=== PATIENT | male | born 1990 | race Caucasian/White ===

== ENCOUNTER 2016-09-23 11:12 | Day surgery (SDC) | payer OTHER ==
[2016-09-23] VITALS (11 sets, daily range): BP systolic 109–143; BP diastolic 60–89; PULSE 55–92; RESP 10–24; O2SAT 96–98
[~2016-09-23] VITALS: Ht 182.9 cm; Wt 85.4 kg
--- NOTE | 2016-09-23 07:45 | PCM.HPANE ---
Patient Data Surgeon Admitting Provider: Attending Provider:Deanna Beck MD Primary Care Physician:[facility],Mateo Sanchez Other Provider:Laura Holderingham Anesthesia Reason for Visit Bilateral Kidney Stone Ht/WT & BMI Height (Feet): 6 Height (Inches): 0 Weight (Kilograms): 87.089 Body Mass Index 26.00 Allergies Coded Allergies: No Known Allergies (Unverified , 09/21/16) Past Anesthesia History Anesthesia History: Denies:: Fam Anesthesia Reaction, Fam Malignant Hypertherm Diabetes History Hx Diabetes?: No MRSA MRSA: No Medications No Active Prescriptions or Reported Meds History History of ENT Problems?: No Hx of Heart Problems?: No Cardiovascular History: Denies:: Heart Murmur Hypertension Hx of Respiratory Problem?: Yes Respiratory History: Denies:: Use of C-PAP Machine (SNORES) Hx Neurologic Problems?: No Hx of GI Problems?: No Hx of Problems?: Yes Genitourinary History: Positive for:: Kidney Stones (HX OF PASSING PRIOR STONE B/L KIDNEY STONES=CURRENT PROBLEM) Other Pertinent History: C/OF INTERMITTANT FLANK PAIN Male Hx: Denies:: Prostate Problems Scrotal Mass Testicular Surgery Skin History: Denies:: History Skin Disorders? Pressure Ulcers Hx Musculoskeletal Problems?: No Hx of Psycho/Social Problems?: No Hx Surgeries?: No Hx Any Other Health Problems?: No Other History: Denies:: Cancer Endocrine Disease Hospitalization Thyroid Disease Hx Diabetes: No Have You Smoked inLast 12 mo: No Stop/Bang S-Snoring: Do You Snore Loudly: Yes T-Tired: feel tired, fatigued: No O-Obsered: Observed not breath: No P-Blood Pressure: treated: No B- Body Mass Index > 35 kg/m2: No A- Age over 50: No N- Neck Large Circumference: No G- Gender Male: Yes LITO Total Score: 2 Risk Assessment Category Category 1A: Patient has history of documented sleep apnea, and HAS NOT received any narcotic, sedative or anesthesia administration during this stay. Category 1B: Patient has history of documented sleep apnea, and HAS received any narcotic , sedative or anesthesia administration during this stay Category 2: Patient has SUSPECTED Obstructive Sleep Apnea, and HAS received any narcotic , sedative or anesthesia administration during this stay. Category 3: Patient has SUSPECTED Obstructive Sleep Apnea and HAS NOT received narcotic, sedative or anesthesia administration during this stay. Category 4: Outpatient in Procedural Areas with known sleep apnea or who screen positive for High Risk via the STOP/BANG questionnaire. Exam Exam General Appearance: Alert, Oriented X3, Cooperative, No Acute Distress HEENT/AIRWAY: MP 2 Lungs: Clear to Percussion Heart: Regular Rate/Rhythm Plan Impression Patient chart reviewed, patient interviewed and anesthestic plan with risks, benefits, and alternatives discussed, and informed consent obtained. ASA Physical Status: ASA1 Normal Healthy Anesthetic Plan: GA Bene/Risks/Altern/Consents: Yes HP Complete Prior to Induction: Yes Marixa Alvarenga DO Sep 23, 2016 07:45
[2016-09-23] MEDS ORDERED: Propofol 10,000 mCg/mL 20 mL Inj ONE (11:13)
[2016-09-23] MEDS ORDERED: fentaNYL-PF 50 mCg/mL 2 mL Inj ONE (11:13)
[2016-09-23] MEDS ORDERED: Dexamethasone 4 mg/mL Inj ONE (11:13)
[2016-09-23] MEDS ORDERED: Ondansetron 2 mg/mL 2 mL Inj ONE (11:13)
[2016-09-23] MEDS ORDERED: CeFAZolin Inj 2 gm / 50mL D5W IV ONE (11:17)
[2016-09-23] MEDS: Lactated Ringer's 1,000 ML IV SCH ×3 (12:01→13:25)
[2016-09-23] MEDS ORDERED: fentaNYL-PF 50 mCg/mL 2 mL Inj IVPUSH PRN (12:50)
[2016-09-23] MEDS ORDERED: Lactated Ringer's 1,000 ML IV SCH (12:50)
[2016-09-23] MEDS ORDERED: MetoCLOpramide 5 mg/mL 2 mL Inj IVPUSH PRN (12:50)
[2016-09-23] MEDS ORDERED: Ondansetron 2 mg/mL 2 mL Inj IVPUSH PRN (12:50)
[2016-09-23] MEDS ORDERED: Lactated Ringer's 500 ML IV PRN (12:50)
[2016-09-23] MEDS ORDERED: HYDROmorphone 1 mg/mL Inj IVPUSH PRN (12:50)
[2016-09-23] MEDS: CeFAZolin Inj 2 GM in IV Premix 1 EACH IV ONE ×2 (12:51→13:30)
--- NOTE | 2016-09-23 14:28 | PCM.ANEP2 ---
Post Anesthesia Evaluation ASA/CMS Post Anesthesia VS in Patient's Normal Range?: Yes Resp Stable; Airway Patent?: Yes CV Function & Hydration Stable: Yes Mental Status Recovered?: Yes Pain control Satisfactory?: Yes N/V Control Satisfactory?: Yes Marixa Alvarenga DO Sep 23, 2016 14:28
--- NOTE | 2016-09-23 14:28 | PCM.ANEP1 ---
Post Anesthesia Phase 1 PACU Phase 1 Assessment Vital Signs Vital Signs Date Time Temp Pulse Resp B/P Pulse Ox O2 Delivery O2 Flow Rate FiO2 09/23/16 14:25 59 14 114/60 97 Simple Mask 8 09/23/16 14:20 55 13 114/62 98 Simple Mask 8 09/23/16 14:18 36.3 55 14 115/64 97 Simple Mask 8 09/23/16 12:02 36.5 79 16 137/81 98 Room Air Anesthetic Administered: GA Level of Alertness: Sleeping, hard to arouse ALFORD's with Equal Strength: Yes Pain: No Nausea or Vomiting: No Oxygen Delivery: Simple Mask Lungs: Normal Air Movement Marixa Alvarenga DO Sep 23, 2016 14:28
--- NOTE | 2016-09-23 14:45 | DRSVH ---
PROCEDURE: X-RAY RETROGRADE UROGRAPHY INDICATIONS: RIGHT STENT TECHNIQUE: 4 intra-operative images acquired by the Urology service. COMPARISON: Outside Film, CT, CT ABD PELVIS W CON, 07/04/2016, 7:38. FINDINGS: Normal appearance of the right renal collecting system. No intraluminal filling defects a re seen. Collecting system is sharp and nondistorted. Visualized portions of the right ureter appea r normal. No extravasation of contrast media. Ureteral stent in place. IMPRESSION: Normal appearance of the right renal collecting system and ureter were visualized and ure teral stent was placed. Dictated by: Max ALLEN Interpreted: Ivon Brizuela MD on 09/23/2016 at 14:44 Transcribed by: JACE on 09/23/2016 at 14:44 Approved by: Ivon Brizuela M.D. on 09/23/2016 at 15:56
--- NOTE | 2016-09-23 14:46 | DRSVH ---
PROCEDURE: X-RAY RETROGRADE UROGRAPHY INDICATIONS: LEFT STENT TECHNIQUE: 3 intra-operative images acquired by the Urology service. COMPARISON: Outside Film, CT, CT ABD PELVIS W CON, 07/04/2016, 7:38. , CR, XR RETROGRADE UROGRAPHY, 09/23/2016, 13:44. FINDINGS: Normal appearance of the left renal collecting system. No intraluminal filling defects ar e seen. Collecting system is sharp and nondistorted. Visualized portions of the right ureter appear normal. No extravasation of contrast media. Ureteral stent in place. IMPRESSION: Normal appearance of the left renal collecting system and the ureter were visualized with placement of ureteral stent. Dictated by: Max ALLEN Interpreted: Ivon Brizuela MD on 09/23/2016 at 14:45 Transcribed by: JACE on 09/23/2016 at 14:46 Approved by: Ivon Brizuela M.D. on 09/23/2016 at 15:56
[2016-09-23] MEDS: HYDROcodone-APAP 5-325 mg Tablet PO PRN ×2 (15:30→15:57)
--- NOTE | 2016-09-24 04:21 | OP ---
[address] [address] OPERATIVE REPORT PATIENT: GEOVANNY MCKAY : 1990 MR#: [id number] ADMIT: 09/23/2016 JOB ID: [id number] DATE OF SURGERY: 09/23/2016 PREOPERATIVE DIAGNOSIS(ES): Bilateral nephrolithiasis. POSTOPERATIVE DIAGNOSIS(ES): Bilateral nephrolithiasis. PROCEDURE PERFORMED: 1. Cystoscopy and bilateral retrograde pyelogram. 2. Right ureteroscopy. 3. Bilateral ureteral stent placement. SURGEON: Deanna Beck MD. CERTIFIED PROSTHETIST/ORTHOTIST: None. FINDINGS: Normal bilateral retrograde pyelograms. ANESTHESIA: General. ESTIMATED BLOOD LOSS: Less than 5 mL. DRAINS: Bilateral 6 x 28 double J ureteral stents. SPECIMENS: None. COMPLICATIONS: None. CONDITION: Stable. 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 DESCRIPTION OF PROCEDURE: After informed consent was obtained, the patient was taken to the operating room. A time-out was performed identifying correct patient, surgical site, and procedure. General anesthesia was smoothly induced. He was placed in the lithotomy position and all pressure points were identified and appropriately padded. His genitals were then prepped and draped in the usual sterile fashion. A 22-Khmer rigid cystoscope was applied to the patient's urethra and advanced to the bladder. The bladder was drained. The bladder was inspected, it was normal. Both ureteral orifices were in orthotopic position. The right ureteral orifice was cannulated with a 5-Khmer open-ended Pollack catheter. Retrograde pyelogram was performed. It appeared normal. Two Sensor tip wires were advanced into the renal pelvis in succession. A 12/14 Access sheath, 28 cm long was advanced over one of those wires into the mid ureter. Flexible ureteroscopy then commenced. Upon advancing to approximately a few centimeters distal to the ureteropelvic junction, there was a narrowing there. There was no stricture. This appeared to be physiologic narrowing. Gentle attempts to advance beyond this area were not possible. Retrograde pyelogram did confirm a slight narrowing in this area. The ureteroscope was then brought down to the level of the access sheath and both were brought down under direct vision. The ureter appeared entirely normal. The remaining Sensor tip wire then back loaded into the cystoscope and a 6 x 28 double-J ureteral stent was loaded over the wire and advanced to the renal pelvis as seen under fluoroscopy. The wire then removed leaving a nice coil in the patient's bladder seen under direct vision. Attention was then turned to the left ureter. A 5-Khmer open-ended Pollack catheter was used to cannulate the orifice. Retrograde pyelogram was performed. It appeared normal. Two Sensor tip wires were advanced into the renal pelvis in succession. A 12/14 access sheath, 28 cm long was attempted to be advanced past the ureteral orifice though this was just not possible as the orifice was tight. The access sheath was removed and the remaining Sensor tip wire was then loaded into the cystoscope and a 6 x 28 double-J ureteral stent was loaded over it and advanced to renal pelvis, seen under fluoroscopy. The bladder was then drained. The 2% viscous lidocaine was instilled in the patient's urethra. The patient was then reversed from general anesthesia and taken to PACU in good and stable condition. ENMA
[2016-09-27] MEDS ORDERED: HYDR-3740 PO (11:36)
== END 2016-09-23 23:59 | disposition home or self-care (01) ==
LOC: SAS 11:12
PROVIDERS: ATTEND Urology
DX: N20.0 Calculus of kidney (principal); R10.30 Lower abdominal pain, unspecified; Z72.0 Tobacco use
CPT/HCPCS: 52332; 74420; C2617; J0690; J1100; J2405; J3010; J7120; Q9967

== ENCOUNTER 2016-09-29 10:40 | Day surgery (SDC) | payer OTHER ==
[2016-09-29] VITALS (7 sets, daily range): BP systolic 126–151; BP diastolic 67–87; PULSE 74–96; RESP 12–22; O2SAT 96–98
[~2016-09-29] VITALS: Ht 182.9 cm; Wt 87.1 kg
[~2016-09-29 10:40] MED LIST: CeFAZolin Inj 2 GM in IV Premix 1 EACH IV ONE; HYDR-3740 PO; Lactated Ringer's 1,000 ML IV SCH
[2016-09-29] MEDS ORDERED: fentaNYL-PF 50 mCg/mL 2 mL Inj ONE (10:41)
[2016-09-29] MEDS ORDERED: Dexamethasone 4 mg/mL Inj ONE (10:41)
[2016-09-29] MEDS ORDERED: Propofol 10,000 mCg/mL 20 mL Inj ONE ×2 (10:41)
[2016-09-29] MEDS ORDERED: Ondansetron 2 mg/mL 2 mL Inj ONE ×2 (10:41)
[2016-09-29] MEDS ORDERED: Lactated Ringer's 1,000 ML IV ONE (11:01)
--- NOTE | 2016-09-29 13:08 | PCM.HPANE ---
Patient Data Surgeon Admitting Provider: Attending Provider:Deanna Beck MD Primary Care Physician:[facility],Mateo Sanchez Other Provider:Estefanía Holder Anesthesia Reason for Visit Bilateral Kidney Stones Ht/WT & BMI Height (Feet): 6 Height (Inches): 0.00 Weight (Kilograms): 87.080 Body Mass Index 26.00 Allergies Coded Allergies: No Known Allergies (Unverified , 09/21/16) Past Anesthesia History Anesthesia History: Denies:: Anesthesia Reactions, Fam Anesthesia Reaction, Fam Malignant Hypertherm Diabetes History Hx Diabetes?: No MRSA MRSA: No Medications Hypertension Medication: No Home Meds Incl Beta Cheri: No Reported Medications Hydrocodone-Acetaminophen 10-325 mg 1 Each Tablet1-2 Tablet PO Q4H PRN For Pain Ref 0 09/27/16 History History of ENT Problems?: No HEENT History: Denies:: Hearing Problem Denture Type: None Teeth Condition: Within Normal Limits Hx of Heart Problems?: No Cardiovascular History: Denies:: AICD Abdominal Aortic Aneurism Atrial Fibrillation Cardiac Surgery Chest Pain Congestive Heart Failure Coronary Artery Disease Edema Heart Murmur Hypertension Irregular Heartbeat Pacemaker Peripheral Vascular Rheumatic Fever Thrombophlebitis Valvular Heart Disease Hx of Respiratory Problem?: No Respiratory History: Denies:: Asthma COPD Chest Surgery Cough Dyspnea Emphysema Hemoptysis Oxygen Administration Pneumonia Pulmonary Embolism Tuberculosis Use of C-PAP Machine Use of Inhalers / NEBS Hx Neurologic Problems?: No Neurological History: Denies:: Alzheimer's Disease CVA Dementia Dizziness Headaches Multiple Sclerosis Parkinson's Disease Peripheral Neuropathy Seizures TIA Hx of GI Problems?: No Gastrointestinal History: Denies:: Cirrhosis Diverticulitis Gall Bladder Disease Gastroesphageal Reflux Gastrointestinal Bleeding Heartburn Hepatitis Hiatal Hernia Liver Disease Rectal Bleeding Hx of Problems?: Yes Genitourinary History: Positive for:: Kidney Stones (dirk stones current admission problem- last surg here 09/23/16) Denies:: Urinary Tract Infection Male Hx: Denies:: Prostate Problems Scrotal Mass Testicular Surgery Skin History: Denies:: History Skin Disorders? Pressure Ulcers Hx Musculoskeletal Problems?: No Musculoskeletal History: Denies:: Back Injury Degenerative Joint Fibromyalgia Joint Replacement Musculoskeletal Trauma Myasthenia Gravis Osteoarthritis Rheumatoid Arthritis Systemic Lupus Hx of Psycho/Social Problems?: No Psycho Social History: Denies:: Anxiety Bipolar Disorder Hx Depression Suicide Attempt Hx Surgeries?: Yes (cysto, lithotripsy) Hx Any Other Health Problems?: Yes Other History: Denies:: Cancer Endocrine Disease Hospitalization Thyroid Disease Hx Diabetes: No Hx Alcohol Use: NoHx Substance Use: NoHave You Smoked inLast 12 mo: No Stop/Bang S-Snoring: Do You Snore Loudly: Yes T-Tired: feel tired, fatigued: No O-Obsered: Observed not breath: No P-Blood Pressure: treated: No B- Body Mass Index > 35 kg/m2: No A- Age over 50: No N- Neck Large Circumference: No G- Gender Male: Yes LITO Total Score: 2 Risk Assessment Category Category 1A: Patient has history of documented sleep apnea, and HAS NOT received any narcotic, sedative or anesthesia administration during this stay. Category 1B: Patient has history of documented sleep apnea, and HAS received any narcotic , sedative or anesthesia administration during this stay Category 2: Patient has SUSPECTED Obstructive Sleep Apnea, and HAS received any narcotic , sedative or anesthesia administration during this stay. Category 3: Patient has SUSPECTED Obstructive Sleep Apnea and HAS NOT received narcotic, sedative or anesthesia administration during this stay. Category 4: Outpatient in Procedural Areas with known sleep apnea or who screen positive for High Risk via the STOP/BANG questionnaire. Exam Exam Vital Signs Vital Signs Date Time Temp Pulse Resp B/P Pulse Ox O2 Delivery O2 Flow Rate FiO2 09/29/16 10:57 36.6 74 16 126/70 96 Room Air General Appearance: Alert, Oriented X3, Cooperative, No Acute Distress HEENT/AIRWAY: MP 2 Lungs: Clear to Auscultation, Normal Air Movement Heart: Exam Unremarkable, Regular Rate/Rhythm, No Murmurs/Rubs/Gallops Meds/Labs/Diagnostics Admission Meds Current Medications Lactated Ringer's (Lr) 1,000 ml @ ud STK-MED ONCE IV Last administered on 09/29t 11:01; Start 09/29/16 at 11:01; Stop 09/29/16 at 11:02; Status DC Plan Impression Patient chart reviewed, patient interviewed and anesthestic plan with risks, benefits, and alternatives discussed, and informed consent obtained. ASA Physical Status: ASA2 Mod Systemic Disease Anesthetic Plan: GA Bene/Risks/Altern/Consents: Yes HP Complete Prior to Induction: Yes Mika Bee MD Sep 29, 2016 11:37
[2016-09-29] MEDS ORDERED: Lactated Ringer's 1,000 ML IV SCH (14:29)
[2016-09-29] MEDS ORDERED: Lactated Ringer's 500 ML IV PRN (14:29)
[2016-09-29] MEDS ORDERED: Dexamethasone 4 mg/mL Inj IVPUSH PRN (14:30)
[2016-09-29] MEDS ORDERED: Ondansetron 2 mg/mL 2 mL Inj IVPUSH PRN (14:30)
[2016-09-29] MEDS ORDERED: HYDROmorphone 1 mg/mL Inj IVPUSH PRN (14:30)
[2016-09-29] MEDS ORDERED: EPHEDrine Sulfate 50 mg/mL Inj IVPUSH PRN (14:30)
[2016-09-29] MEDS ORDERED: MetoCLOpramide 5 mg/mL 2 mL Inj IVPUSH PRN (14:30)
[2016-09-29] MEDS ORDERED: fentaNYL-PF 50 mCg/mL 2 mL Inj IVPUSH PRN (14:30)
[2016-09-29] MEDS ORDERED: Phenylephrine 10,000 mCg/mL Inj IVPUSH PRN (14:30)
--- NOTE | 2016-09-29 14:31 | PCM.ANEP1 ---
Post Anesthesia Phase 1 PACU Phase 1 Assessment Vital Signs Vital Signs Date Time Temp Pulse Resp B/P Pulse Ox O2 Delivery O2 Flow Rate FiO2 09/29/16 14:28 37.0 91 15 141/70 97 Room Air 09/29/16 10:57 36.6 74 16 126/70 96 Room Air Anesthetic Administered: GA Level of Alertness: Awake, talking ALFORD's with Equal Strength: Yes Pain: No Nausea or Vomiting: No Cardiovascular Function and Hy: Yes Oxygen Delivery: Room Air Lungs: Clear to Auscultation, Normal Air Movement Dermatome Level: Full Sensation Complications: Yes Follow up Care: No Patient Instructions Provided: Yes Mika Bee MD Sep 29, 2016 14:31
[2016-09-29] MEDS ORDERED: HYDROcodone-APAP 5-325 mg Tablet PO PRN (14:35)
--- NOTE | 2016-09-29 14:51 | DRSVH ---
PROCEDURE: X-RAY RETROGRADE UROGRAPHY INDICATIONS: BILATERAL KIDNEY STONES TECHNIQUE: 2 intra-operative images acquired by the Urology service. COMPARISON: [facility], CR, XR RETROGRADE UROGRAPHY, 09/23/2016, 13:44. [facility], CR, XR RETROGRADE UROGRAPHY, 09/29/2016, 13:41. [facility], CR, XR RETROGRADE URO GRAPHY, 09/23/2016, 13:44. Outside Film, CT, CT ABD PELVIS W CON, 07/04/2016, 7:38. FINDINGS: Exam is limited to submitted images. The left renal collecting system is minimally dilate d. No intraluminal filling defects are seen. Ureteral stent is placed. IMPRESSION: Minimal dilation of the left renal collecting system and placement of a ureteral stent. Dictated by: Max cAe [facility] Interpreted: Neri Chang MD on 09/29/2016 at 14:49 Transcribed by: MIHIR on 09/29/2016 at 14:51 Approved by: Neri Chang M.D. on 09/29/2016 at 15:14
--- NOTE | 2016-09-29 14:55 | DRSVH ---
PROCEDURE: X-RAY RETROGRADE UROGRAPHY INDICATIONS: BILATERAL KIDNEY STONES TECHNIQUE: 2 intra-operative images acquired by the Urology service. COMPARISON: [facility], CR, XR RETROGRADE UROGRAPHY, 09/29/2016, 13:41. Outside Film, CT , CT ABD PELVIS W CON, 07/04/2016, 7:38. [facility], CR, XR RETROGRADE UROGRAPHY, 09/24/19 17, 13:44. [facility], CR, XR RETROGRADE UROGRAPHY, 09/23/2016, 13:44. FINDINGS: Contrast injection demonstrates mildly dilated right renal collecting system. No intralumi nal filling defects are seen. Ureter incompletely imaged. No extravasation of contrast media. A ur eteral stent is placed. IMPRESSION: Mildly dilated appearance of the right renal collecting system and placement of a right u reteral stent. Dictated by: Max Ace [facility] Interpreted: Neri Chang MD on 09/29/2016 at 14:53 Transcribed by: MIHIR on 09/29/2016 at 14:54 Approved by: Neri Chang M.D. on 09/29/2016 at 15:12
--- NOTE | 2016-09-29 23:23 | OP ---
[address] [address] OPERATIVE REPORT PATIENT: GEOVANNY MCKAY : 1990 MR#: [id number] ADMIT: 09/29/2016 JOB ID: [id number] DATE OF SURGERY: 09/29/2016 PREOPERATIVE DIAGNOSIS(ES): Bilateral kidney stones. POSTOPERATIVE DIAGNOSIS(ES): Bilateral kidney stones. PROCEDURE PERFORMED: 1. Cystoscopy and bilateral retrograde pyelogram. 2. Bilateral stent removal. 3. Bilateral ureteroscopy with laser lithotripsy. 4. Bilateral stent placement. SURGEON: Deanna Beck MD. FORMING DEPARTMENT SUPERVISOR: None. FINDINGS: Multiple tiny stones in each kidney adherent to papilla. ANESTHESIA: General. ESTIMATED BLOOD LOSS: 5 mL. DRAINS: None. STENT: 6 x 28 double-J ureteral stents bilaterally. COMPLICATIONS: None. CONDITION: Stable. INDICATION FOR PROCEDURE: The patient is a 25-year-old gentleman with bilateral kidney stones. He underwent bilateral ureteral stent placement last week. He now presents for the aforementioned procedure. DESCRIPTION OF PROCEDURE: After informed consent was obtained, the patient was taken to the operating room. A time-out was performed, identifying correct patient, surgical site, and procedure. General anesthesia was smoothly induced. He was placed in the lithotomy position and all pressure points were identified and appropriately padded. His genitals were then prepped and draped in usual sterile fashion. He was given intravenous antibiotics just prior to start of procedure. A 22-Belarusian rigid cystoscope was applied to patient's urethra and advanced to bladder. Bladder was drained. The stents were seen emanating from both ureteral orifices. Attention was turned to the right ureteral orifice. The stent was grasped with alligator forceps and brought down to the urethral meatus, at which point it was cannulated with a Sensor Tip wire which was navigated to the renal pelvis as seen under fluoroscopy. The stent was then removed and examined on the back table. It was ensured as removed in its entirety. A second Sensor Tip wire was then loaded into the renal pelvis as seen under fluoroscopy. A 12/14 access sheath 28 cm long was placed over one of the wires and advanced to the distal mid ureter. Flexible ureteroscopy then commenced. Retrograde pyelogram was performed. Every calyx was inspected meticulously. There were two very tiny Greg's plaques which were removed with the laser. The ureteroscope was then brought down to the level of the access sheath and both were brought down in tandem. The ureter appeared normal. The remaining wire was then backloaded in the cystoscope and a 6 x 28 double-J ureteral stent was loaded over it and advanced to the renal pelvis as seen on fluoroscopy. There was a nice coil seen in the bladder under direct vision. Attention was then turned to the left side. The stent was then again grasped with alligator forceps and brought down to the urethral meatus. It was cannulated with a Sensor Tip wire. The stent was then removed and examined on the back table and ensured as removed in its entirety. A second Sensor Tip wire was then loaded into the renal pelvis as seen under fluoroscopy. A 12/14 access sheath, 28 cm long, was then loaded over one of the wires and guided into the ureter. Flexible ureteroscopy then commenced. Retrograde pyelogram was performed. Again, every calyx was inspected meticulously. There were approximately three stones here. They were mostly quite tiny and presented as Greg's plaques. These were treated again with a 273 micron laser fiber wire and broken into tiny pieces. The largest stone was approximately 3 mm. This was broken up into tiny pieces and essentially these were non-basketable as they were dust debris at that point. The ureteroscope was then brought down to the level of the access sheath. Both were brought down in tandem. The remaining Sensor Tip wire was then backloaded from the cystoscope and a 6 x 28 double-J ureteral stent was loaded over it and advanced to the renal pelvis as seen on fluoroscopy. The wire was then removed leaving a nice coil in the patient's bladder as seen under direct vision. Bladder was then drained. The patient was then reversed from general anesthesia and taken to PACU in good and stable condition. ENMA
== END 2016-09-29 23:59 | disposition home or self-care (01) ==
LOC: SAS 10:40
PROVIDERS: ATTEND Urology
DX: N20.0 Calculus of kidney (principal); F17.220 Nicotine dependence, chewing tobacco, uncomplicated
CPT/HCPCS: 52356; 74420; C2617; J0690; J1100; J2250; J2405; J3010; J7120; Q9967